=== PATIENT | male | born 1975 | race Caucasian/White ===

== ENCOUNTER 2021-07-25 09:33 | Observation (INO) ==
[2021-07-25 10:02] LABS: Basophils # 0.1 10*3/uL (0.0-0.2); Basophils % 0.6 % (0.0-0.8); Eosinophils # 0.2 10*3/uL (0.0-0.87); Eosinophils % 1.9 % (0.00-10.9); Hemoglobin 15.8 GM/DL (14.0-18.0); Immature Granulocytes % 0.4 %; Immature Granulocytes Absolute 0.04 #; Lymphocytes # 3.1 10*3/uL (1.4-4.0); Lymphocytes % 29.3 % (21.2-54.2); Mean Corpuscular HGB Conc 33.6 GM/DL (32-36); Mean Corpuscular Volume 97.5 FL (87-102); Mean Platelet Volume 9.2 FL (9.6-12.0); Monocytes % 7.8 % (1.7-12.7); Platelet Count 346 T/CUMM (130-400); Red Blood Count 4.82 MC/CUMM (3.8-5.5); Red Cell Distribution Width 12.8 % (9.3-17.3); White Blood Count 10.5 T/CUMM (4-12)
[2021-07-25 10:22] LABS: Alanine Aminotransferase 29 U/L (16-61); Albumin 3.9 G/DL (3.4-5.0); Alkaline Phosphatase 120 U/L (45-117); Aspartate Amino Transferase 13 U/L (0-37); Bilirubin,Total < 0.39 MG/DL (0.20-1.00); Blood Urea Nitrogen 13 MG/DL (7-18); Calcium 9.1 MG/DL (8.5-10.1); Carbon Dioxide 26 MMOL/L (21-32); Estimated Glom Filtration Rate 140 ML/MIN; Glucose 125 MG/DL (74-106); Osmolality,Calculated 281.3 MOS/KG (273-304); Potassium 4.2 MMOL/L (3.5-5.1); Sodium 141 MMOL/L (136-145); Total Protein 7.6 G/DL (6.4-8.2)
[2021-07-25] MEDS ORDERED: LABETALOL 100 MG/20 ML VIAL IV STA (10:50)
[2021-07-25] MEDS ORDERED: ONDANSETRON 4 MG/2 ML VIAL IV PRN (11:10)
[2021-07-25] MEDS ORDERED: ACETAMINOPHEN 325 MG TABLET PO PRN (11:10)
[2021-07-25 11:48] LABS: High Sensitive Troponin I* < 3.0 ng/L (0-78)
[2021-07-25] MEDS ORDERED: ENOXAPARIN 100 MG/ML SYRINGE SUBCUT STA (12:23)
[2021-07-25] MEDS ORDERED: ENOXAPARIN 100 MG/ML SYRINGE SUBCUT ONE (12:24)
[2021-07-25 14:52] LABS: High Sensitive Troponin I* < 3.0 ng/L (0-78)
[2021-07-25] MEDS ORDERED: ZALEPLON 5 MG CAPSULE PO PRN (20:10)
[2021-07-25] MEDS: METOPROLOL SUCCINATE XL 50 MG TABLET PO SCH (21:22)
[2021-07-25] MEDS: DOCUSATE SODIUM 100 MG CAPSULE PO SCH (21:23)
[2021-07-26 08:22] VITALS: BP 145/83
[2021-07-26] MEDS: METOPROLOL SUCCINATE XL 50 MG TABLET PO SCH (08:51)
[2021-07-26] MEDS: DOCUSATE SODIUM 100 MG CAPSULE PO SCH (08:52)
[2021-07-26] MEDS ORDERED: ATORVASTATIN 40 MG TABLET PO SCH (09:00)
[2021-07-26] MEDS ORDERED: PANTOPRAZOLE 40 MG TABLET PO SCH (09:00)
[2021-07-26] MEDS ORDERED: ASPIRIN EC 81 MG TABLET PO SCH (09:00)
== END 2021-07-26 10:30 | disposition home or self-care (01) ==
LOC: N.TELEN 09:33 → N.ED 09:33 → N.TELEN 16:35
PROVIDERS: ADMIT Family Medicine; ATTEND Family Medicine